=== PATIENT | female | born 1945 | race Caucasian/White ===

== ENCOUNTER 2017-11-03 09:08 | Day surgery (SDC) | payer MEDICARE, BC ==
[2017-10-30 08:46] VITALS: BMI 23.4
[~2017-11-03 09:08] MED LIST: LACTATED RINGERS 1,000 ML IV SCH
[2017-11-03] MEDS ORDERED: LIDOCAINE 1% 20 ML VIAL (10MG/ML) FOR IV START INTRADERMA ONE (09:49)
[2017-11-03] MEDS ORDERED: PROPOFOL 10 MG/ML 20 ML VIAL IV ONE (10:14)
[2017-11-03] MEDS ORDERED: LIDOCAINE 1% INJ 10MG/ML (20 ML MDV) ONE (10:14)
--- NOTE | 2017-11-03 10:55 | P.PCN ---
Date of Procedure: 11/03/17 Procedure(s) Performed: Procedure: Esophagogastroduodenoscopy and biopsy. Preoperative diagnosis: Abdominal pain with reflux and nausea and vomiting. Postoperative diagnosis: 1. Small sliding hiatal hernia with no obvious esophagitis or complicated reflux disease. 2. Mild gastritis and duodenitis with pre-pyloric ulcer not bleeding at the time of the exam or causing gastric outlet obstruction. 3. Multiple biopsies obtained from the duodenum, antrum, antral ulcer and esophagus. Preparation sedation: Was provided by anesthesia. Brief clinical history: The patient is a 72-year-old female who is scheduled for this evaluation because of history of abdominal pain, reflux, weight loss as well as nausea and vomiting. The patient was in the emergency room at [facility] last month for abdominal pain, nausea and vomiting. The patient was on arthritis medications which has been held and is currently receiving Zantac, omeprazole and Carafate. This evaluation is to assess for peptic ulcer disease or other pathology. Procedure: With the patient on her left lateral decubitus position and after informed consent and adequate sedation, I passed the Olympus-GIF 160 video upper endoscope through the cricopharyngeus down the esophagus. GE junction was around 36-37 cm from the incisors and there was a small sliding hiatal hernia. The esophagus did not show any obvious esophagitis or complicated reflux disease. The endoscope was then advanced into the stomach which was insufflated with air and inspected in detail including the retroflex view in the cardia. Finally, the endoscope was passed through the pylorus into the duodenum. Duodenal bulb showed some erythema and minimal friability but no ulcers or erosions. Pyloric channel did not show any ulcers. The antrum showed mottling and erythema and there was an antral ulcer in the prepyloric area measuring around 3 cm in greatest dimension which was covered with white and dark exudate but that did not show any evidence of bleeding or gastric outlet obstruction. I obtained biopsies from mid said in addition to biopsies from the duodenum, antrum and esophagus before the endoscope was withdrawn. The patient tolerated the procedure well. Plan: Will await biopsy results. In the meantime we will continue intensive medical therapy like you are doing. The patient will be seen in follow-up and consideration can be considered for repeat exam to assess for the healing of the ulcer in 8-12 weeks. We will keep you updated on her progress.
[2017-11-04 22:59] VITALS: BP 113/75; PULSE 61; RESP 16; TEMP 97.8
== END 2017-11-03 11:28 | disposition home or self-care (01) ==
LOC: ORWHC2ENDO 09:08
DX: K21.0 Gastro-esophageal reflux disease with esophagitis (principal); K29.00 Acute gastritis without bleeding; K29.50 Unspecified chronic gastritis without bleeding; K29.80 Duodenitis without bleeding; K44.9 Diaphragmatic hernia without obstruction or gangrene; E78.5 Hyperlipidemia, unspecified; E89.0 Postprocedural hypothyroidism; I10 Essential (primary) hypertension; M19.90 Unspecified osteoarthritis, unspecified site; Z79.891 Long term (current) use of opiate analgesic; Z79.899 Other long term (current) drug therapy; Z96.653 Presence of artificial knee joint, bilateral
CPT/HCPCS: 43239; 88305; 88342; J2001; J2704

== ENCOUNTER → 2018-06-21 | Outpatient (CLI) | payer MEDICARE, BC | END | disposition home or self-care (01) | LOC: LABWHC1 10:15 | PROVIDERS: ATTEND Surgery Plastic and Reconstructive Surgery | DX: Z01.818 Encounter for other preprocedural examination (principal) | CPT/HCPCS: 93005 ==

== ENCOUNTER 2018-07-15 06:01 | Day surgery (SDC) | payer MEDICARE, BC ==
[2018-07-12 14:07] VITALS: BMI 23.8
--- NOTE | 2018-07-14 19:06 | P.GSHP ---
History of Present Illness H&P Date: 07/15/18 CHIEF COMPLAINT: Cholecystitis and gastric ulcers HISTORY OF PRESENT ILLNESS: The patient is a 73-year-old female who presents with history of epigastric including right upper quadrant abdominal pain. She underwent diagnostic studies for her gallbladder. Separately her clinical picture was consistent with cholecystitis. Now she presents for surgical intervention. Additionally, she has history of gastric ulcers as well as elevated liver enzymes. PAST MEDICAL HISTORY: Please see list PAST SURGICAL HISTORY: Please see list MEDICATIONS: Please see list ALLERGIES: Denies. SOCIAL HISTORY: No illicit drug use or recent tobacco use FAMILY HISTORY: Pertinent for gallbladder disease REVIEW OF ORGAN SYSTEMS: CONSTITUTIONAL: No reports of fevers or chills. HEENT: Denies any troubles with the vision or hearing. PHYSICAL EXAM: VITAL SIGNS: Afebrile vital signs stable GENERAL: Well-developed pleasant in no acute distress. HEENT: No scleral icterus. Extraocular movements grossly intact. Moist buccal mucosa. NECK: Supple without lymphadenopathy. CHEST: Unlabored respirations. Equal bilateral excursions. CARDIOVASCULAR: Regular rate regular rhythm rhythm. Distal 2+ pulses. ABDOMEN: Soft, nondistended. Tender along the epigastrium and right upper quadrant. MUSCULOSKELETAL: No clubbing, cyanosis, or edema. NEURO: Cranial nerves II to XII within normal limits. No focal or lateralizing signs. PSYCH: Alert and oriented to person, place and time. SKIN: Well-perfused good skin turgor. ASSESSMENT: 1. Epigastric and right upper quadrant abdominal pain 2. Chronic cholecystitis 3. Symptomatic gallstones. 4. Gastric ulcers PLAN: 1. Will need a robotic cholecystectomy possible open. Benefits and risks were described. 2. Heparin for DVT prophylaxis 5000 units. 3. Antibiotic prophylaxis. 4. Recommend intraoperative upper endoscopy for history of gallstones ulcers 5. Will need compress and metabolic panel including CBC with history of elevated liver enzymes and cholecystitis Past Medical History Past Medical History: GERD/Reflux, Hyperlipidemia, Hypertension, Memory Impairment, Osteoarthritis (OA), Thyroid Disorder Additional Past Medical History / Comment(s): STATES RECENTLY HOSPITALIZED AT [facility] FOR PROBLEMS SWALLOWING. History of Any Multi-Drug Resistant Organisms: None Reported Past Surgical History: Back Surgery, Joint Replacement Additional Past Surgical History / Comment(s): DARRIUS. TOTAL KNEE, LOWER BACK SURGERY X2 Past Anesthesia/Blood Transfusion Reactions: No Reported Reaction Smoking Status: Former smoker - Past Family History Mother Family Medical History: No Reported History Medications and Allergies Home Medications Medication Instructions Recorded Confirmed Type Atorvastatin [Lipitor] 40 mg PO DAILY 10/30/17 07/12/18 History Donepezil [Aricept] 10 mg PO HS 10/30/17 07/12/18 History Levothyroxine Sodium [Synthroid] 125 mcg PO DAILY 10/30/17 07/12/18 History Metoprolol Tartrate [Lopressor] 25 mg PO BID 10/30/17 07/12/18 History Multivit with Calcium,Iron,Min 1 each PO DAILY 10/30/17 07/12/18 History [Women's Multivitamin] Allergies Allergy/AdvReac Type Severity Reaction Status Date / Time No Known Allergies Allergy Verified 07/12/18 13:59
[~2018-07-15 06:01] MED LIST changes: +DEXAMETHASONE SOD PHOSPHATE 10 MG/ML 1 ML VIAL IV ONE; +HEPARIN SODIUM,PORCINE 5,000 UNIT/ML 1 ML VIAL SQ ONE; +HEPARIN SODIUM,PORCINE 5,000 UNIT/ML 1 ML VIAL SQ STA; +INDOCYANINE GREEN 25 MG VIAL IV STA; +MIDAZOLAM 2 MG/2 ML VIAL IV PRN; +ONDANSETRON 4 MG/2 ML VIAL IVP ONE; +ceFAZolin IN SWFI 2 GM/20 ML SYRINGE IVP ONE; +fentaNYL (PF) 50 MCG/ML 2 ML AMP IV PRN
[2018-07-15 06:41] VITALS: RESP 16
[2018-07-15 06:58] LABS: Basophils % (A) 1 %; Eosinophils # (A) 0.1 k/uL (0-0.7); Eosinophils % (A) 1 %; HGB 12.7 gm/dL (11.4-16.0); Lymphocytes # (A) 1.2 k/uL (1.0-4.8); Lymphocytes % (A) 21 %; MCH 30.4 pg (25.0-35.0); MCHC 32.6 g/dL (31.0-37.0); MCV 93.4 fL (80.0-100.0); Mean Platelet Volume 7.1; Monocytes # (A) 0.3 k/uL (0-1.0); Monocytes % (A) 6 %; Neutrophils # (A) 3.8 k/uL (1.3-7.7); Neutrophils % (A) 69 %; Platelet Count 239 k/uL (150-450); RBC 4.18 m/uL (3.80-5.40); RDW 13.3 % (11.5-15.5); WBC 5.5 k/uL (3.8-10.6)
[2018-07-15 07:08] LABS: Albumin 3.9 g/dL (3.5-5.0); Calcium 9.1 mg/dL (8.4-10.2); Potassium 4.1 mmol/L (3.5-5.1); Total Bilirubin 2.1 mg/dL (0.2-1.3); Total Protein 6.5 g/dL (6.3-8.2)
[2018-07-15] MEDS ORDERED: ePHEDrine SULFATE/0.9% NACL/PF 50 MG/5 ML SYRINGE IV ONE (07:34)
[2018-07-15] MEDS ORDERED: BUPIVACAIN-EPI 0.25%-1:200,000 30 ML VIAL SQ ONE (07:34)
[2018-07-15] MEDS ORDERED: GLYCOPYRROLATE 0.2 MG/ML 2 ML VIAL ONE (07:34)
[2018-07-15] MEDS ORDERED: MIDAZOLAM 2 MG/2 ML VIAL ONE (07:34)
[2018-07-15] MEDS ORDERED: ROCURONIUM BROMIDE 10 MG/ML 10 ML VIAL IV ONE (07:34)
[2018-07-15] MEDS ORDERED: LIDOCAINE 1% INJ 10MG/ML (20 ML MDV) ONE (07:34)
[2018-07-15] MEDS ORDERED: PROPOFOL 10 MG/ML 20 ML VIAL IV ONE (07:34)
[2018-07-15] MEDS ORDERED: INDOCYANINE GREEN 25 MG VIAL IV ONE (07:34)
[2018-07-15] MEDS ORDERED: fentaNYL (PF) 50 MCG/ML 2 ML AMP ONE (07:34)
[2018-07-15] MEDS ORDERED: NEOSTIGMINE 1 MG/ML 10 ML VIAL ONE (07:34)
[2018-07-15] MEDS ORDERED: SUCCINYLCHOLINE CHLORIDE 100 MG/5 ML SYR IV ONE (07:34)
[2018-07-15] MEDS ORDERED: LACTATED RINGERS 1,000 ML IV ONE (08:42)
--- NOTE | 2018-07-15 08:42 | P.PCN ---
Date of Procedure: 07/15/18 Description of Procedure: PREOPERATIVE DIAGNOSIS: History of gastric ulcers POSTOPERATIVE DIAGNOSIS: History of gastric ulcers Gastritis. Gastroesophageal reflux disease. Diaphragmatic hiatal hernia OPERATION: Esophagogastroduodenoscopy with biopsies along antrum. SURGEON: Fouzia Cadet MD ANESTHESIA: MAC. INDICATIONS: The patient is a 73-year-old female who presents with a history of reflux disease. Benefits and risks of the procedure were described. Informed consent was obtained. DESCRIPTION: The patient was brought into the endoscopy suite and laid in the left lateral decubitus position. An Olympus gastroscope was passed along the posterior oropharynx down to the distal esophagus where the squamocolumnar junction was encountered at 37 cm from the incisors. The stomach was entered and no bile reflux was found. Additional findings are listed below. Biopsies with cold forceps were obtained of the antrum. The first through third portion of the duodenum was examined and unremarkable. Retroflexion of the scope confirmed Hill grade 3 lower esophageal valve. The squamocolumnar junction demonstrated no LA grade A erosive esophagitis. The stomach was desufflated. The patient tolerated the procedure well. FINDINGS: Squamocolumnar junction 37 cm from the incisors. Diaphragmatic hiatus at 40 cm. Hiatal hernia, 3 cm Hill grade 3 lower esophageal valve. No LA grade A erosive esophagitis. No active duodenitis. Chronic gastritis with recent bleed RECOMMENDATIONS: Upper endoscopy as needed.
--- NOTE | 2018-07-15 08:45 | P.OP ---
Date of Procedure: 07/15/18 Description of Procedure: SURGEON: FELICE GRAY MD DIGITAL MARKETING SPECIALIST: PREOPERATIVE DIAGNOSES: 1. Symptomatic gallstones 2. Chronic cholecystitis 3. History of gastric ulcers 4. Hypertensive heart disease 5. Hyperlipidemia 6. Hypothyroidism 7. Dysphagia 8. Dementia POSTOPERATIVE DIAGNOSES: 1. Symptomatic gallstones 2. Chronic cholecystitis 3. History of gastric ulcers 4. Hypertensive heart disease 5. Hyperlipidemia 6. Hypothyroidism 7. Dysphagia 8. Dementia OPERATION: 1. Robotic-assisted da Niraj Xi laparoscopic cholecystectomy, multiport with FIREFLY 2. Intraoperative esophagogastroduodenoscopy (please see separate operative report) ESTIMATED BLOOD LOSS: 5 mL. SPECIMENS REMOVED: Gallbladder. COMPLICATIONS: None. OPERATIVE FINDINGS: 1. Chronic cholecystitis INDICATIONS: The patient is a 73-year-old female who presents with cholelcystitis. Surgical intervention with a laparoscopic cholecystectomy was described at length including injury to the biliary tree, bleeding, infection, need for further surgery. Informed consent was obtained. Robotic assisted laparoscopic approach was described. Benefits and risks of the procedure including but not limited to bleeding, infection, injury to the biliary tree was described. Informed consent was obtained. DESCRIPTION OF PROCEDURE: Patient was brought to the operating room, placed in supine position. After general induction, the abdomen had been prepped and draped in standard sterile fashion. The robotic da Niraj XI system was primed. After a timeout protocol was performed, the patient had been prepped and draped in standard sterile fashion. The patient was injected with indocyanine green. A 5 mm 0 degrees laparoscopic trocar entry was performed along the left upper quadrant. The abdomen insufflated to 15 mmHg pressure which she tolerated well. Diagnostic laparoscopy demonstrated no injury to bowel viscera or mesentery. The liver surface was unremarkable. Next, two 8 mm robotic ports were placed along the right upper abdomen. The camera 8-mm port was maintained along the epigastrium. Another 8 mm port was placed along the left upper abdominal wall after exchanging the 5 mm port. Please note that the ports were placed at least 10 to 15 cm away from the target anatomy of the gallbladder. The robot was docked along the left lateral abdomen. The patient was repositioned in reverse Trendelenburg position. Using a grasper for arm 3, a grasper for arm 4, including hook cautery for arm 1 , the robotic system was docked and primed as described. Instruments were interchanged by the assistant director of nursing including hook cautery, Bovie cautery and clip appliers. I had sat at the console. Adhesions were identified along the infundibulum of the gallbladder and addressed using hook cautery. The gallbladder fundus was retracted over the dome of the liver. Initial attention was brought to the infundibulum which was gently retracted in the inferior lateral approach. Using a grasper, the cystic duct including the cystic artery was carefully skeletonized. FIREFLY was used to identify the cystic artery and cystic structures. Large PLASTIC clips were used throughout the entire case. Using a clip napper runner 2 clips were placed proximally, and 1 clip was placed distally along the cystic duct and then cauterized with the cautery. Again care was taken to avoid any injury to the biliary tree as the common bile duct was clearly visualized during this portion of dissection. Next, the cystic artery was similarly clipped and cauterized. Electro-Bovie cautery was used to remove the gallbladder from the hepatic fossa. Hemostasis was checked and found to be adequate. The robot was undocked. I re-scrubbed into the case. Using a 10 mm Endo Catch bag via the left upper quadrant incision, the specimen was removed from the abdominal cavity. All pneumoperitoneum instruments were evacuated from the abdominal cavity. The incisions were reapproximated using 4-0 Monocryl in an interrupted subcuticular fashion. Fascial defects were less than 8 mm in size. Please note along the trocar sites, local anesthetic was placed as a field block prior to insertion of all instruments. Liquid glue was applied to the skin. At the end of the procedure needle, sponge, and instrument count had been verified correct by the medical coding technician. The patient was transferred to postanesthesia care unit in stable condition. Intraoperative films were shared with the patient's family who were very pleased with the level of care. Console time 16 minutes Plan - Discharge Summary New Discharge Prescriptions: No Action Atorvastatin [Lipitor] 40 mg PO DAILY Metoprolol Tartrate [Lopressor] 25 mg PO BID Levothyroxine Sodium [Synthroid] 125 mcg PO DAILY Donepezil [Aricept] 10 mg PO HS Multivit with Calcium,Iron,Min [Women's Multivitamin] 1 each PO DAILY Discharge Medication List Atorvastatin [Lipitor] 40 mg PO DAILY 10/30/17 [History] Donepezil [Aricept] 10 mg PO HS 10/30/17 [History] Levothyroxine Sodium [Synthroid] 125 mcg PO DAILY 10/30/17 [History] Metoprolol Tartrate [Lopressor] 25 mg PO BID 10/30/17 [History] Multivit with Calcium,Iron,Min [Women's Multivitamin] 1 each PO DAILY 10/30/17 [ History]
[2018-07-15 08:54] VITALS: TEMP 97.7
[2018-07-15] MEDS ORDERED: HYDROmorphone 1 MG/ML 1 ML SYRINGE IVP ONE (09:04)
[2018-07-15 10:01] VITALS: BP 125/78; PULSE 70
== END 2018-07-15 10:45 | disposition home or self-care (01) ==
LOC: OR 06:01
PROVIDERS: ATTEND Surgery Plastic and Reconstructive Surgery
DX: K81.1 Chronic cholecystitis (principal); K29.50 Unspecified chronic gastritis without bleeding; K21.9 Gastro-esophageal reflux disease without esophagitis; R13.10 Dysphagia, unspecified; K44.9 Diaphragmatic hernia without obstruction or gangrene; K22.10 Ulcer of esophagus without bleeding; I11.9 Hypertensive heart disease without heart failure; E78.5 Hyperlipidemia, unspecified; E03.9 Hypothyroidism, unspecified; F03.90 Unspecified dementia, unspecified severity, without behavioral disturbance, psychotic disturbance, mood disturbance, and anxiety; K40.90 Unilateral inguinal hernia, without obstruction or gangrene, not specified as recurrent; Z87.891 Personal history of nicotine dependence; Z79.890 Hormone replacement therapy; Z79.899 Other long term (current) drug therapy
CPT/HCPCS: 88304; 88305; 80053; 85025; 47562; 43239; J2250; J1644; J1100; J2710; J2405; J2001; J3010; J1170; J0330; J2704; J0690

== ENCOUNTER → 2019-05-25 | Outpatient (CLI) | payer MEDICARE, BC ==
--- NOTE | 2019-05-25 13:43 | CT ---
EXAMINATION TYPE: CT lumbar spine wo con DATE OF EXAM: 05/25/2019 COMPARISON: None HISTORY: Intervertebral disc degeneration CT DLP: 375.[address] of the lumbar spine was performed. Bone and soft tissue window settings are submitted as well as coronal and sagittal reconstructions. L1-L2: Normal disc space height. No disc herniation protrusion or central stenosis. No facet joint arthropathy. No evidence for foraminal encroachment. L2-L3: Normal disc space height. No disc herniation protrusion or central stenosis. No facet joint arthropathy. No evidence for foraminal encroachment. L3-L4: Moderate degenerative disc space narrowing. Posterior disc bulge. No herniation or protrusion. No central stenosis or foraminal encroachment. Facet joint arthropathy. L4-L5: Postoperative changes of decompressive laminectomy. Intervertebral body spacers are in place. Alignment is anatomic. No evidence for recurrent or residual disease. L5-S1: Postoperative changes of decompressive laminectomy. Severe degenerative disc space narrowing. No evidence for recurrent or residual disease. No paraspinal masses are identified. Lumbar segments are free if fracture. IMPRESSION: 1. Postoperative changes as noted within normal alignment. No evidence for recurrent or residual dise ase. 2. Degenerative disc disease at L3-4 with disc bulges noted.
== END | disposition home or self-care (01) ==
LOC: RADCTMAIN 12:47
PROVIDERS: ATTEND Nurse Practitioner Adult Health
DX: M51.36 Other intervertebral disc degeneration, lumbar region (principal); M51.26 Other intervertebral disc displacement, lumbar region; Z98.890 Other specified postprocedural states
CPT/HCPCS: 72131

== ENCOUNTER 2023-03-08 16:42 | Inpatient (IN) | payer MEDICARE, BC ==
[2023-03-08 17:09] LABS: Basophils % (A) 0 %; Eosinophils # (A) 0.1 k/uL (0-0.7); Eosinophils % (A) 2 %; Lymphocytes # (A) 1.5 k/uL (1.0-4.8); Lymphocytes % (A) 21 %; MCH 30.6 pg (25.0-35.0); MCHC 33.3 g/dL (31.0-37.0); MCV 91.7 fL (80.0-100.0); Mean Platelet Volume 8.5; Monocytes # (A) 0.6 k/uL (0-1.0); Monocytes % (A) 8 %; Neutrophils # (A) 4.8 k/uL (1.3-7.7); Neutrophils % (A) 67 %; RBC 3.93 m/uL (3.80-5.40); WBC 7.2 k/uL (3.8-10.6)
--- NOTE | 2023-03-08 17:25 | XR ---
EXAMINATION TYPE: XR chest 1V DATE OF EXAM: 03/08/2023 5:19 PM COMPARISON: None TECHNIQUE: XR chest 1V Portable AP radiograph of the chest. CLINICAL INDICATION:Female, 78 years old with history of pain; FINDINGS: Patient is rotated which limits evaluation. Lungs/Pleura: There is no evidence of pleural effusion, focal consolidation, or pneumothorax. Chroni c senescent parenchymal change. Pulmonary vascularity: Unremarkable. Heart/mediastinum: Cardiomediastinal silhouette is prominent in size. Musculoskeletal: No acute osseous pathology. IMPRESSION: No acute cardiopulmonary disease/process.
--- NOTE | 2023-03-08 17:28 | XR ---
EXAMINATION TYPE: XR Hip RT and AP Pelvis DATE OF EXAM: 03/08/2023 5:18 PM INDICATION: Patient age:Female; 78 years old; Reason for study: fall; PHH. COMPARISON: None. TECHNIQUE: The right hip was examined in frontal and crosstable lateral projections and a AP pelvis. FINDINGS: Mildly displaced acute intertrochanteric fracture with extension distally into the proximal diaphysis. A lesser trochanter is displaced approximately 8.5 cm medially. There is associated mild soft tissue edema. No dislocation. Mild osteoarthritic changes of both hips with joint space narrowin g and marginal osteophytosis. Pelvic phleboliths identified. IMPRESSION: Acute mildly displaced right proximal femur intertrochanteric fracture with extension into the proxim al diaphysis.
[2023-03-08 17:33] LABS: ALT 25 U/L (4-34); AST 35 U/L (14-36); African American GFR (CKD) >90 (>60 ml/min/1.73 sqM); Albumin 3.5 g/dL (3.5-5.0); Alkaline Phosphatase 101 U/L (38-126); Anion Gap 7 mmol/L; Blood Urea Nitrogen 27 mg/dL (7-17); Calcium 8.5 mg/dL (8.4-10.2); Carbon Dioxide 27 mmol/L (22-30); Chloride 106 mmol/L (98-107); Glucose 98 mg/dL (74-99); Non-African American GFR(CKD) 87 (>60 ml/min/1.73 sqM); Potassium 4.1 mmol/L (3.5-5.1); Sodium 140 mmol/L (137-145); Total Bilirubin 1.2 mg/dL (0.2-1.3); Total Protein 6.2 g/dL (6.3-8.2)
[2023-03-08 17:35] LABS: INR 1.3 (<1.2); Prothrombin Time 13.6 sec (9.0-12.0)
[2023-03-08 17:46] LABS: Partial Thromboplastin Time 19.3 sec (22.0-30.0)
[2023-03-08 17:47] LABS: Platelet Count 96 k/uL (150-450)
[2023-03-08] MEDS ORDERED: HYDROmorphone 1 MG/ML 1 ML SYRINGE IVP PRN (17:52)
[2023-03-08] MEDS ORDERED: NALOXONE 0.4 MG/ML 1 ML VIAL IV PRN (17:52)
[2023-03-08] MEDS ORDERED: ACETAMINOPHEN TAB 325 MG TAB PO PRN (17:52)
--- NOTE | 2023-03-08 17:56 | ED ---
General Adult HPI - General Chief complaint: Fall Stated complaint: Fall, right hip injury Time Seen by Provider: 03/08/23 16:44 Source: family, EMS, RN notes reviewed, old records reviewed Mode of arrival: EMS Limitations: altered mental status - History of Present Illness Initial comments: 78-year-old female resents status [facility]. Patient was walking in the hallway, fell onto her right side. No head or neck trauma. No loss conscious. No anti-coagulation. She was noted by paramedics to have a shortened and rotated right lower extremity. Patient has advanced dementia and is unable to contribute at all to the history. Patient received 5 mg of morphine by paramedics during transport - Related Data Home Medications Medication Instructions Recorded Confirmed Atorvastatin [Lipitor] 40 mg PO DAILY 10/30/17 07/12/18 Donepezil [Aricept] 10 mg PO HS 10/30/17 07/12/18 Levothyroxine Sodium [Synthroid] 125 mcg PO DAILY 10/30/17 07/12/18 Metoprolol Tartrate [Lopressor] 25 mg PO BID 10/30/17 07/12/18 Multivit with Calcium,Iron,Min 1 each PO DAILY 10/30/17 07/12/18 [Women's Multivitamin] Previous Rx's Medication Instructions Recorded Ibuprofen [Motrin] 600 mg PO Q8HR PRN #30 tab 07/15/18 Omeprazole 40 mg PO DAILY #14 capsule. 07/15/18 Allergies Allergy/AdvReac Type Severity Reaction Status Date / Time No Known Allergies Allergy Verified 03/08/23 16:50 Review of Systems ROS Statement: Those systems with pertinent positive or pertinent negative responses have been documented in the HPI. ROS Other: All systems not noted in ROS Statement are negative. Past Medical History Past Medical History: Dementia, GERD/Reflux, Hyperlipidemia, Hypertension, Memory Impairment, Osteoarthritis (OA), Thyroid Disorder Additional Past Medical History / Comment(s): STATES RECENTLY HOSPITALIZED AT [facility] FOR PROBLEMS SWALLOWING. alzheimers History of Any Multi-Drug Resistant Organisms: None Reported Past Surgical History: Back Surgery, Joint Replacement Additional Past Surgical History / Comment(s): DARRIUS. TOTAL KNEE, LOWER BACK SURGERY X2 Past Anesthesia/Blood Transfusion Reactions: No Reported Reaction Past Psychological History: Anxiety Smoking Status: Unknown if ever smoked Past Alcohol Use History: None Reported Past Drug Use History: None Reported - Past Family History Mother Family Medical History: No Reported History General Exam Limitations: altered mental status General appearance: alert, in no apparent distress Head exam: Present: atraumatic, normocephalic Eye exam: Present: normal appearance, PERRL Neck exam: Present: normal inspection. Absent: tenderness, meningismus Respiratory exam: Present: normal lung sounds bilaterally. Absent: respiratory distress, wheezes Cardiovascular Exam: Present: regular rate, normal rhythm GI/Abdominal exam: Present: soft. Absent: distended, tenderness, guarding Extremities exam: Present: tenderness (Tenderness with any movement of the right hip. The right leg is shortened and rotated. Distal pulses intact.). Absent: full ROM Neurological exam: Present: alert. Absent: oriented X3 Psychiatric exam: Present: normal affect, normal mood Course Vital Signs 03/08/23 16:43 Temperature 98.3 F Pulse Rate 74 Respiratory 18 Rate Blood Pressure 115/76 O2 Sat by Pulse 96 Oximetry Medical Decision Making - Medical Decision Making Was pt. sent in by a medical professional or institution (, PA, HEALTH AND SAFETY DIRECTOR, urgent care, hospital, or penitentiary...) When possible be specific @ -No Did you speak to anyone other than the patient for history (EMS, parent, family, police, friend...)? What history was obtained from this source @ Paramedics and family Did you review nursing and triage notes (agree or disagree)? Why? @ -I reviewed and agree with nursing and triage notes Were old charts reviewed (outside hosp., previous admission, EMS record, old EKG, old radiological studies, urgent care reports/EKG's, penitentiary records)? Report findings @ -No old charts were reviewed Differential Diagnosis (chest pain, altered mental status, abdominal pain women, abdominal pain men, vaginal bleeding, weakness, fever, dyspnea, syncope, headache, dizziness, GI bleed, back pain, seizure, CVA, palpatations, mental health, musculoskeletal)? @ -not applicable EKG interpreted by me (3pts min.). @ -As above X-rays interpreted by me (1pt min.). @ Right intertrochanteric fracture CT interpreted by me (1pt min.). @ -None done U/S interpreted by me (1pt. min.). @ -None done What testing was considered but not performed or refused? (CT, X-rays, U/S, labs)? Why? @ -None What meds were considered but not given or refused? Why? @ -None Did you discuss the management of the patient with other professionals (pr ofessionals i.e. , PA, HEALTH AND SAFETY DIRECTOR, lab, RT, psych nurse, dialysis social worker, lithographic stripper, teacher, earth science technical officer, shelter case manager)? Give summary @ Dr. Horvath Was smoking cessation discussed for >3mins.? @ -No Was critical care preformed (if so, how long)? @ -No Were there social determinants of health that impacted care today? How? (Homelessness, low income, unemployed, alcoholism, drug addiction, tra nsportation, low edu. Level, literacy, decrease access to med. care, penitentiary, rehab)? @ -No Was there de-escalation of care discussed even if they declined (Discuss DNR or withdrawal of care, Hospice)? DNR status @ -No What co-morbidities impacted this encounter? (DM, HTN, Smoking, COPD, CAD, Cancer, CVA, ARF, Chemo, Hep., AIDS, mental health diagnosis, sleep apnea, morbid obesity)? @ Advanced dementia Was patient admitted / discharged? Hospital course, mention meds given and route, prescriptions, significant lab abnormalities, going to OR and other pertinent info. @ 78-year-old female with ground level fall, right hip fracture. Patient will be admitted to orthopedics with medicine on consult. Undiagnosed new problem with uncertain prognosis? @ -No Drug Therapy requiring intensive monitoring for toxicity (Heparin, Nitro, Insulin, Cardizem)? @ -No Were any procedures done? @ -No Diagnosis/symptom? @ Right IT fracture Acute, or Chronic, or Acute on Chronic? @ Acute Uncomplicated (without systemic symptoms) or Complicated (systemic symptoms)? @ -Complicated Side effects of treatment? @ -No Exacerbation, Progression, or Severe Exacerbation? @ -No Poses a threat to life or bodily function? How? (Chest pain, USA, AL, pneumonia, PE, COPD, DKA, ARF, appy, cholecystitis, CVA, Diverticulitis, Homicidal, Suicidal, threat to staff... and all critical care pts) @ -Yes, immobility, pneumonia - Lab Data Result diagrams: 03/08/23 16:57 03/08/23 16:57 Lab Results 05/05/2403/08/23 03/08/23 Range/Units 16:57 16:57 16:57 WBC 7.2 (3.8-10.6) k/uL RBC 3.93 (3.80-5.40) m/uL Hgb 12.0 (11.4-16.0) gm/dL Hct 36.0 (34.0-46.0) % MCV 91.7 (80.0-100.0) fL MCH 30.6 (25.0-35.0) pg MCHC 33.3 (31.0-37.0) g/dL RDW 14.0 (11.5-15.5) % Plt Count 96 L (150-450) k/uL MPV 8.5 Neutrophils % 67 % Lymphocytes % 21 % Monocytes % 8 % Eosinophils % 2 % Basophils % 0 % Neutrophils # 4.8 (1.3-7.7) k/uL Lymphocytes # 1.5 (1.0-4.8) k/uL Monocytes # 0.6 (0-1.0) k/uL Eosinophils # 0.1 (0-0.7) k/uL Basophils # 0.0 (0-0.2) k/uL PT 13.6 H (9.0-12.0) sec INR 1.3 H (<1.2) APTT 19.3 L (22.0-30.0) sec Sodium 140 (137-145) mmol/L Potassium 4.1 (3.5-5.1) mmol/L Chloride 106 (98-107) mmol/L Carbon Dioxide 27 (22-30) mmol/L Anion Gap 7 mmol/L BUN 27 H (7-17) mg/dL Creatinine 0.64 (0.52-1.04) mg/dL Est GFR (CKD-EPI)AfAm >90 (>60 ml/min/1.73 sqM) Est GFR (CKD-EPI)NonAf 87 (>60 ml/min/1.73 sqM) Glucose 98 (74-99) mg/dL Calcium 8.5 (8.4-10.2) mg/dL Total Bilirubin 1.2 (0.2-1.3) mg/dL AST 35 (14-36) U/L ALT 25 (4-34) U/L Alkaline Phosphatase 101 (38-126) U/L Total Protein 6.2 L (6.3-8.2) g/dL Albumin 3.5 (3.5-5.0) g/dL Disposition Clinical Impression: Intertrochanteric fracture of right hip Disposition: ADMITTED IP TO THIS HOSP Condition: Stable Is patient prescribed a controlled substance at d/c from ED?: No Referrals: Latoya Mead DO [Primary Care Provider] - 1-2 days Time of Disposition: 17:56
[2023-03-08] MEDS: HYDROmorphone 0.5 MG/0.5 ML SYRINGE IVP PRN ×2 (18:22→22:54)
[2023-03-08] MEDS: SODIUM CHLORIDE 0.9% 1,000 ML IV SCH (18:24)
[2023-03-08] MEDS: ONDANSETRON 4 MG/2 ML VIAL IVP PRN (22:55)
[2023-03-09] MEDS: ONDANSETRON 4 MG/2 ML VIAL IVP PRN ×2 (04:47→15:42)
[2023-03-09] MEDS: HYDROmorphone 0.5 MG/0.5 ML SYRINGE IVP PRN ×3 (04:48→19:12)
[2023-03-09] MEDS: SODIUM CHLORIDE 0.9% 1,000 ML IV SCH ×2 (05:52→22:10)
--- NOTE | 2023-03-09 08:29 | P.HPOR ---
History of Present Illness H&P Date: 03/09/23 Chief Complaint: Right hip pain. This is a 78-year-old female who resides at [facility] and has history of dementia. She apparently was up walking with staff and fell yesterday. On exam and x-ray in the emergency department she is found to have a an intertrochanteric fracture with extension into the subtrochanteric region. She is admitted to our service for surgical intervention and care. Family is present at bedside. The patient is unable to provide history. Past Medical History Past Medical History: Dementia, GERD/Reflux, Hyperlipidemia, Hypertension, Memory Impairment, Osteoarthritis (OA), Thyroid Disorder Additional Past Medical History / Comment(s): STATES RECENTLY HOSPITALIZED AT [facility] FOR PROBLEMS SWALLOWING. alzheimers History of Any Multi-Drug Resistant Organisms: None Reported Past Surgical History: Back Surgery, Joint Replacement Additional Past Surgical History / Comment(s): DARRIUS. TOTAL KNEE, LOWER BACK SURGE RY X2 Past Anesthesia/Blood Transfusion Reactions: No Reported Reaction Past Psychological History: Anxiety Smoking Status: Unknown if ever smoked Past Alcohol Use History: None Reported Additional Past Alcohol Use History / Comment(s): SMOKED A FEW YEARS A TEENAGER Past Drug Use History: None Reported - Past Family History Mother Family Medical History: No Reported History Medications and Allergies Home Medications Medication Instructions Recorded Confirmed Type Atorvastatin [Lipitor] 40 mg PO HS 10/30/17 03/08/23 History Donepezil [Aricept] 10 mg PO HS 10/30/17 03/08/23 History Metoprolol Tartrate [Lopressor] 12.5 mg PO HS 10/30/17 03/08/23 History Acetaminophen [Tylenol 8 Hour] 650 mg PO Q6H PRN 03/08/23 03/08/23 History Citalopram Hydrobromide [CeleXA] 20 mg PO DAILY 03/08/23 03/08/23 History Divalproex Sprinkle [Depakote 125 mg PO BID 03/08/23 03/08/23 History Sprinkle] Furosemide [Lasix] 20 mg PO BID@0700,1600 03/08/23 03/08/23 History LORazepam [Ativan] 0.5 mg PO TID@0700,1300,1900 03/08/23 03/08/23 History Levothyroxine Sodium [Synthroid] 100 mcg PO DAILY@0500 03/08/23 03/08/23 History Potassium Chloride ER [K-Dur 10] 10 meq PO DAILY@0703/08/23 03/08/23 History QUEtiapine [SEROquel] 50 mg PO HS@199903/08/23 03/08/23 History Allergies Allergy/AdvReac Type Severity Reaction Status Date / Time No Known Allergies Allergy Verified 03/08/23 16:50 Physical Examination This is a 78-year-old female in no acute distress. She is unable to provide history or answer questions. Family is providing her history. Exam of the head neck reveal no deformities. There is no apparent pain with palpation of cervical spine or paraspinal musculature. Exam of the upper extremities is unremarkable. No areas of swelling or deformity noted. Exam of the lower extremities reveals shortening and external rotation to the right leg. Pedal pulse is +2/4. Neurovascular status to the lower extremity is intact. Results Pelvis and hip x-rays reveal intertrochanteric fracture of the right hip with extension of the fracture down past the subtrochanteric region. - Labs Labs: Abnormal Lab Results - Last 24 Hours (Table) 03/08/23 03/08/23 03/08/23 Range/Units 16:57 16:57 16:57 Plt Count 96 L (150-450) k/uL PT 13.6 H (9.0-12.0) sec INR 1.3 H (<1.2) APTT 19.3 L (22.0-30.0) sec BUN 27 H (7-17) mg/dL Total Protein 6.2 L (6.3-8.2) g/dL H & H 03/08/23 Range/Units 16:57 Hgb 12.0 (11.4-16.0) gm/dL Hct 36.0 (34.0-46.0) % Coagulation 03/08/23 Range/Units 16:57 INR 1.3 H (<1.2) Result Diagrams: 03/08/23 16:57 03/08/23 16:57 Assessment and Plan (1) Closed fracture of proximal end of right femur Current Visit: Yes Status: Acute Code(s): S72.001A - FRACTURE OF UNSP PART OF NECK OF RIGHT FEMUR, INIT SNOMED Code(s): 664850119 (2) Intertrochanteric fracture of right hip Current Visit: Yes Status: Acute Code(s): S72.141A - DISPLACED INTERTROCHANTERIC FRACTURE OF RIGHT FEMUR, INIT SNOMED Code(s): 572213905 Plan: The clinical and x-ray findings are discussed with the patient and her family. It is recommended she undergo closed reduction with insertion of long intertrochanteric nail right hip. The procedures been discussed in detail including the possible risks and outcomes of surgery. After discussion and consideration the family elects to proceed. We're planning surgery today if cleared medically.
--- NOTE | 2023-03-09 13:15 | P.CONS ---
History of Present Illness - Reason for Consult Consult date: 03/09/23 Medical management - History of Present Illness History of present illness; patient is a 78-year-old lady with past medical history significant for dementia who is a resident of [facility] presented to the ER after having a fall. Patient was walking with staff when she fell on her right side hitting her hip. Patient was brought to the ER of [facility]. Initial blood work in the ER showed white count of 7.2, hemoglobin 12, platelet count 96, sodium 140, potassium 4.1, chloride 106, BUN 27, creatinine 0.64 Pelvis and hip x-rays reveal intertrochanteric fracture of the right hip with extension of the fracture down past the subtrochanteric region Patient was admitted to orthopedic service, internal medicine was consulted for medical management REVIEW OF SYSTEMS: Patient has baseline dementia, review of systems cannot be obtained because of patient's current mental status PHYSICAL EXAMINATION: GENERAL: The patient is alert to self, not in any acute distress. Well developed, well nourished. HEENT: Pupils are round and equally reacting to light. EOMI. No scleral icterus. No conjunctival pallor. Normocephalic, atraumatic. No pharyngeal erythema. No thyromegaly. CARDIOVASCULAR: S1 and S2 present. No murmurs, rubs, or gallops. PULMONARY: Chest is clear to auscultation, no wheezing or crackles. ABDOMEN: Soft, nontender, nondistended, normoactive bowel sounds. No palpable o rganomegaly. MUSCULOSKELETAL: Right lower extremity externally rotated EXTREMITIES: No cyanosis, clubbing, or pedal edema. NEUROLOGICAL: Gross neurological examination did not reveal any focal deficits. SKIN: No rashes. Assessment and plan Right hip fracture Dementia Thrombocytopenia Plan; Monitor vital signs Monitor CBC Delirium precautions Continue pain management Continue DVT prophylaxis per orthopedic Patient is medically cleared for orthopedic procedure, patient had moderate risk for postoperative complications Past Medical History Past Medical History: Dementia, GERD/Reflux, Hyperlipidemia, Hypertension, Memory Impairment, Osteoarthritis (OA), Thyroid Disorder Additional Past Medical History / Comment(s): STATES RECENTLY HOSPITALIZED AT [facility] FOR PROBLEMS SWALLOWING. alzheimers History of Any Multi-Drug Resistant Organisms: None Reported Past Surgical History: Back Surgery, Joint Replacement Additional Past Surgical History / Comment(s): DARRIUS. TOTAL KNEE, LOWER BACK SURGERY X2 Past Anesthesia/Blood Transfusion Reactions: No Reported Reaction Past Psychological History: Anxiety Smoking Status: Unknown if ever smoked Past Alcohol Use History: None Reported Additional Past Alcohol Use History / Comment(s): SMOKED A FEW YEARS A TEENAGER Past Drug Use History: None Reported - Past Family History Mother Family Medical History: No Reported History Medications and Allergies Home Medications Medication Instructions Recorded Confirmed Type Atorvastatin [Lipitor] 40 mg PO HS 10/30/17 03/08/23 History Donepezil [Aricept] 10 mg PO HS 10/30/17 03/08/23 History Metoprolol Tartrate [Lopressor] 12.5 mg PO HS 10/30/17 03/08/23 History Acetaminophen [Tylenol 8 Hour] 650 mg PO Q6H PRN 03/08/23 03/08/23 History Citalopram Hydrobromide [CeleXA] 20 mg PO DAILY 03/08/23 03/08/23 History Divalproex Sprinkle [Depakote 125 mg PO BID 03/08/23 03/08/23 History Sprinkle] Furosemide [Lasix] 20 mg PO BID@0700,1600 03/08/23 03/08/23 History LORazepam [Ativan] 0.5 mg PO TID@0700,1300,1900 03/08/23 03/08/23 History Levothyroxine Sodium [Synthroid] 100 mcg PO DAILY@0500 03/08/23 03/08/23 History Potassium Chloride ER [K-Dur 10] 10 meq PO DAILY@0700 03/08/23 03/08/23 History QUEtiapine [SEROquel] 50 mg PO HS@199903/08/23 03/08/23 History Allergies Allergy/AdvReac Type Severity Reaction Status Date / Time No Known Allergies Allergy Verified 03/08/23 16:50 Physical Exam Vitals: Vital Signs Temp Pulse Pulse Resp BP BP Pulse Ox 03/09/23 09:36 18 03/09/23 08:44 98.0 F 62 18 127/74 92 L 03/09/23 01:24 97.8 F 85 20 121/78 93 L 03/08/23 20:41 98.9 F 90 18 124/83 90 L 03/08/23 18:19 83 20 126/81 95 03/08/23 16:43 98.3 F 74 18 115/76 96 Intake and Output 03/08/23 03/09/23 03/09/23 22:59 06:59 14:59 Intake Total 0 Output Total 800 Balance -800 Intake: Oral 0 Output: Urine 800 Uretheral (Duran) 400 Other: Voiding Method Indwelling Catheter Indwelling Catheter # Voids 1 Weight 63.503 kg Results CBC & Chem 7: 03/08/23 16:57 03/08/23 16:57 Labs: Abnormal Lab Results - Last 24 Hours (Table) 03/08/23 03/08/23 03/08/23 Range/Units 16:57 16:57 16:57 Plt Count 96 L (150-450) k/uL PT 13.6 H (9.0-12.0) sec INR 1.3 H (<1.2) APTT 19.3 L (22.0-30.0) sec BUN 27 H (7-17) mg/dL Total Protein 6.2 L (6.3-8.2) g/dL
[2023-03-09] MEDS: LORazepam 0.5 MG TAB PO SCH (17:30)
[2023-03-09] MEDS ORDERED: LACTATED RINGERS 1,000 ML IV ONE (20:38)
[2023-03-09] MEDS ORDERED: SODIUM CHLORIDE 0.9% 50 ML with ceFAZolin 2,000 MG IV ONE ×2 (20:42)
[2023-03-09] MEDS ORDERED: fentaNYL (PF) 50 MCG/ML 2 ML AMP ONE (20:42)
[2023-03-09] MEDS ORDERED: PROPOFOL 10 MG/ML 20 ML VIAL IV ONE (20:42)
[2023-03-09] MEDS ORDERED: GLYCOPYRROLATE 0.2 MG/ML 2 ML VIAL ONE (20:42)
[2023-03-09] MEDS ORDERED: LIDOCAINE 2% INJ 20 MG/ML (2 ML VIAL) ONE (20:42)
[2023-03-09] MEDS ORDERED: TRANEXAMIC ACID IN NACL,ISO-OS 1,000 MG/100 ML BAG ONE (20:42)
[2023-03-09] MEDS ORDERED: ceFAZolin 1,000 MG in SODIUM CHLORIDE 0.9% 1,000 ML IRRIGATION ONE (20:45)
[2023-03-09] MEDS ORDERED: TRANEXAMIC ACID 1,000 MG in SODIUM CHLORIDE 0.9% 100 ML IVPB ONE (20:58)
[2023-03-09] MEDS ORDERED: ATORVASTATIN 40 MG TAB PO SCH (21:00)
--- NOTE | 2023-03-09 21:49 | P.OP ---
Date of Procedure: 03/09/23 Procedure(s) Performed: PREOPERATIVE DIAGNOSIS: Right hip intertrochanteric fracture. POSTOPERATIVE DIAGNOSIS: Right hip intertrochanteric fracture. OPERATION: Right hip intertrochanteric fracture closed reduction and intramedullary nailing using Synthes IT nail. TARGET MAN: Lupe Redd PA-C (Assistance with: Patient positioning, retraction, exposure, hemostasis, fixation, irrigation, closure, dressing) ANESTHESIA: Gen ESTIMATED BLOOD LOSS: 100 mL. COMPLICATIONS: None OPERATIVE FINDINGS: See dictation INDICATIONS: Mrs. Berger is a 78 year old lady with a history of right intertrochanteric fracture. She has severe dementia but is evidently fairly active. The patient presents to the operating room today for closed reduction and intramedullary nailing. I discussed the risks of surgery in detail as being inclusive of but not limited to: Bleeding, infection, scarring, discomfort, bl ood vessel and/or nerve damage, need for further surgery, malunion, nonunion, gait disturbance including persistent or permanent limp, limb length inequality, arthritis, hardware failure, blood clot, pulmonary embolism, , and other risks. The consent form has been signed. PROCEDURE: After appropriate consent was obtained, the patient was taken to the operating room and placed in supine position. General anesthetic was administered and after confirmation of adequate anesthesia, the patient was carefully placed in the supine position on the operating room table in the fracture table. The patient was placed up against a well-padded peroneal post. Care was taken to make sure about that all pressure points were adequately padded. The affected leg was placed in boot traction and the unaffected leg was placed in a well leg alicea. Using gentle longitudinal distraction as well as adduction and internal rotation, the fracture was reduced as assessed by AP and lateral C-arm imaging. The fracture that extended from the lesser trochanter inferiorly was carefully monitored to make sure that it remained nondisplaced. Once a satisfactory reduction had been obtained, the thigh was prepped and draped in the usual aseptic fashion using ChloraPrep. Ioban drape was used for the case and the patient received intravenous antibiotics prior to incision. Timeout was called, confirming patient identity, side, procedure, and administration of antibiotics. The incision was then created with a #10 blade just proximal to the greater trochanter laterally. It was carried down through skin into the subcutaneous tissues and through fascia. Hemostasis was obtained using electrocautery. The tip of the greater trochanter was palpated and a guide pin was placed at the tip and directed into the femoral shaft as assessed with C-arm imaging. Once optimal pin position had been obtained, a 17 mm reamer was used over the guide pin to create a path for the IT nail. Patient had very good quality cortical bone thickness and therefore a short nail was chosen rather than a long nail. This decision was also based on the interlock of the 170 mm short nail being adequately distal to the furthest extent of the nondisplaced fracture within the proximal shaft. IT nail selected was assembled to the insertion jig on the back table and bushings were checked for accuracy. The nail was then inserted using gentle mallet taps until it was fully deployed. The amount of rotation of the implant was assessed based on the amount of anteversion of the femoral neck. This was rotated to match the patient's femoral neck anteversion and the helical blade guide was placed through the insertion jig and through an incision on the lateral side of the thigh more distal than the first. Once this guide was placed against the lateral cortex of the femur, a guide pin was drilled into the central lower region of the femoral head and neck as based on AP and lateral C- arm imaging. Once optimal pin position had been obtained, the guidewire was measured and appropriately sized helical blade was selected. The path for the helical blade was prepared using a tapered reamer. The helical blade was then inserted using gentle mallet taps along the guidewire until it was fully deployed. There was no displacement of the fracture during this step. The anti- rotation screw was locked down and the insertion apparatus for the helical blade was removed. The guide pin was then removed. Traction was then removed from the leg and the distal interlock was placed through the jig using standard technique. Finally, the insertion jig for the nail was removed and final C-arm images were taken and saved in both AP and lateral planes. The final x-rays showed satisfactory positioning of the implant and good reduction of the fracture. The top of the nail was plugged with a small quantity of bone wax and the incisions were then thoroughly irrigated with normal saline. Final hemostasis was obtained using electrocautery and closure of the fascia was performed using 0-Vicryl suture. 2-0 Vicryl suture was used in the subcutaneous tissues and standard skin closure was performed. Sterile dressing was then applied and the patient was carefully removed from the fracture table frame and placed onto the stretcher. The patient tolerated the procedure well. There were no complications and above noted blood loss. The patient was then subsequently transferred to recovery room in stable condition. Sponge and needle counts were correct.
[2023-03-09] MEDS: QUEtiapine 50 MG TAB PO SCH (22:10)
[2023-03-09] MEDS: DIVALPROEX SPRINKLE 125 MG CAP.SPRINK PO SCH (22:10)
[2023-03-09] MEDS: DONEPEZIL 10 MG TAB PO SCH (22:10)
[2023-03-09] MEDS ORDERED: NALOXONE 0.4 MG/ML 1 ML VIAL IV PRN (22:12)
[2023-03-09] MEDS ORDERED: HYDROcodone/APAP 5-325MG 1 EACH TAB PO PRN (22:14)
[2023-03-09] MEDS ORDERED: HYDROmorphone 0.5 MG/0.5 ML SYRINGE IVP PRN ×3 (22:14)
[2023-03-09] MEDS ORDERED: MAGNESIUM HYDROXIDE 2,400 MG/10 ML CUP PO PRN (22:14)
--- NOTE | 2023-03-09 22:19 | XR ---
EXAMINATION TYPE: XR Hip Complete RT, FL guidance operating room DATE OF EXAM: 03/09/2023 Comparison: None Clinical History: 78-year-old female rt hip nail, fx Findings: Intraoperative fluoroscopy during placement of antegrade intramedullary nail and screw fixation acros s the patient's proximal right femoral intertrochanteric fracture. FLUOROSCOPY Fluoroscopy time of 90 seconds was used during right proximal femur fracture fixation.. 3 image/s do cument/s the procedure. DOSE AREA PRODUCT (DAP) UGY*M,MGY*CM: 4.9027 Impression: Intraoperative fluoroscopy as above.
[2023-03-09] MEDS: METOPROLOL TARTRATE 12.5 MG TAB PO SCH (23:50)
[2023-03-09] MEDS: LACTATED RINGERS 1,000 ML IV SCH (23:50)
[2023-03-10] MEDS: LEVOTHYROXINE 100 MCG TAB PO SCH (05:47)
[2023-03-10] MEDS: LORazepam 0.5 MG TAB PO SCH ×4 (05:47→21:12)
--- NOTE | 2023-03-10 09:01 | P.PN ---
Subjective Progress Note Date: 03/10/23 This is a 78-year-old female who is status post closed reduction and intramedullary nailing of the right hip. This is postoperative day #1 and patient is seen and evaluated at bedside today. Patient has a history of dementia and family is present at bedside today. Family states that the patient has been comfortable and mostly resting so far. Objective - Vital Signs Vital signs: Vital Signs Temp 98.6 F 03/10/23 06:48 Pulse 73 03/10/23 06:48 Resp 16 03/10/23 06:48 BP 104/68 03/10/23 06:48 Pulse Ox 95 03/10/23 06:48 FiO2 Intake & Output 03/09/23 03/10/23 03/10/23 18:59 06:59 18:59 Intake Total 0 601 Output Total 300 575 Balance -300 26 Intake: IV 601 Oral 0 Output: Urine 300 475 Estimated Blood Loss 100 Other: Voiding Method Indwelling Catheter Indwelling Catheter # Voids 0 - Exam Vital signs are stable. Patient is in no acute distress. Patient is pleasantly confused. Calf is soft and nontender to palpation. Dressings are clean, dry, and intact. Patient has full foot and ankle motion without pain or difficulty. Sensation intact. Neurovascular status and circulatory status are intact. - Labs CBC & Chem 7: 03/08/23 16:57 03/08/23 16:57 Assessment and Plan Assessment: Status post closed reduction and intramedullary nailing of the right hip. (1) Intertrochanteric fracture of right hip Current Visit: Yes Status: Acute Code(s): S72.141A - DISPLACED INTERTRO CHANTERIC FRACTURE OF RIGHT FEMUR, INIT SNOMED Code(s): 665247275 Plan: Continue routine postop care and pain control. Patient is to remain nonweightbearing to the right lower extremity. Continue anticoagulation with aspirin. Dressings to stay intact for one week. Appreciate input from medicine. Patient plans to discharge back to [facility].
[2023-03-10] MEDS: LACTATED RINGERS 1,000 ML IV SCH ×2 (09:37→18:06)
[2023-03-10 10:55] LABS: Basophils # (A) 0.03 X 10*3/uL (0.00-0.10); Basophils % (A) 0.3 %; Eosinophils # (A) 0.01 X 10*3/uL (0.04-0.35); Eosinophils % (A) 0.1 %; HCT 29.5 % (37.2-46.3); HGB 9.3 g/dL (12.0-15.0); Immature Grans, Automated 0.3 %; Lymphocytes # (A) 0.59 X 10*3/uL (0.90-5.00); Lymphocytes % (A) 6.3 %; MCHC 31.5 g/dL (32.0-37.0); MCV 95.2 fL (80.0-97.0); Mean Platelet Volume 11.9 fL (9.5-12.2); Monocytes # (A) 0.71 X 10*3/uL (0.20-1.00); Monocytes % (A) 7.6 %; NRBC Per 100 WBC 0 /100 WBCS (0.0-0.0); Neutrophils # (A) 7.95 X 10*3/uL (1.80-7.70); Neutrophils % (A) 85.4 %; Platelet Count 172 X 10*3/uL (140-440); RDW 14.8 % (11.5-14.5); WBC 9.32 X 10*3/uL (4.50-10.00)
[2023-03-10] MEDS: ASPIRIN 81 MG PO SCH ×2 (11:03→21:23)
[2023-03-10] MEDS: CITALOPRAM HYDROBROMIDE 20 MG TAB PO SCH (11:03)
[2023-03-10] MEDS: DIVALPROEX SPRINKLE 125 MG CAP.SPRINK PO SCH ×2 (11:10→21:24)
[2023-03-10 11:14] LABS: ALT 161 U/L (4-34); AST 115 U/L (14-36); African American GFR (CKD) >90 (>60 ml/min/1.73 sqM); Albumin 2.8 g/dL (3.5-5.0); Albumin/Globulin Ratio 1.2; Alkaline Phosphatase 145 U/L (38-126); Anion Gap 7 mmol/L; Blood Urea Nitrogen 19 mg/dL (7-17); Calcium 7.7 mg/dL (8.4-10.2); Carbon Dioxide 26 mmol/L (22-30); Chloride 106 mmol/L (98-107); Globulin 2.4 g/dL; Glucose 106 mg/dL (74-99); Non-African American GFR(CKD) >90 (>60 ml/min/1.73 sqM); Potassium 3.8 mmol/L (3.5-5.1); Sodium 139 mmol/L (137-145); Total Bilirubin 1.5 mg/dL (0.2-1.3); Total Protein 5.2 g/dL (6.3-8.2)
--- NOTE | 2023-03-10 12:49 | P.PN ---
Subjective Progress Note Date: 03/10/23 patient is a 78-year-old lady with past medical history significant for dementia who is a resident of [facility] presented to the ER after having a fall. Patient was walking with staff when she fell on her right side hitting her hip. Patient was brought to the ER of [facility]. Initial blood work in the ER showed white count of 7.2, hemoglobin 12, platelet count 96, sodium 140, potassium 4.1, chloride 106, BUN 27, creatinine 0.64 Pelvis and hip x-rays reveal intertrochanteric fracture of the right hip with extension of the fracture down past the subtrochanteric region Patient was admitted to orthopedic service, internal medicine was consulted for medical management 03/10. Patient seen and examined. Not in acute distress. Vital signs stable. patient's daughter at the bedside. White count is 9.32, hemoglobin is 9.3. Platelet count 172. patient LFTs were elevated this morning, AST 115, ALT 161, alkaline phosphatase 145, REVIEW OF SYSTEMS: has baseline dementia, cannot obtain a detailed review of systems PHYSICAL EXAMINATION: GENERAL: The patient is alert and oriented x3, not in any acute distress. Well developed, well nourished. HEENT: Pupils are round and equally reacting to light. EOMI. No scleral icterus. No conjunctival pallor. Normocephalic, atraumatic. No pharyngeal erythema. No thyromegaly. CARDIOVASCULAR: S1 and S2 present. No murmurs, rubs, or gallops. PULMONARY: Chest is clear to auscultation, no wheezing or crackles. ABDOMEN: Soft, nontender, nondistended, normoactive bowel sounds. No palpable organomegaly. MUSCULOSKELETAL: right hip surgical incision seen EXTREMITIES: No cyanosis, clubbing, or pedal edema. NEUROLOGICAL: Gross neurological examination did not reveal any focal deficits. SKIN: No rashes. Assessment and plan Right hip fracture Dementia Thrombocytopenia acute blood loss anemia elevated LFTs plan Monitor vital signs Monitor CBC Monitor CMP status post closed reduction and intramedullary nailing of the right hip Continue pain management per orthopedics Continue DVT prophylaxis per orthopedicsin the form of aspirin 81 mg twice a day DC Lipitor because of elevated LFTs PT and OT evaluation continue home meds DVT prophylaxis: Objective - Vital Signs Vital signs: Vital Signs Temp 98.6 F 03/10/23 06:48 Pulse 73 03/10/23 06:48 Resp 16 03/10/23 06:48 BP 104/68 03/10/23 06:48 Pulse Ox 95 03/10/23 06:48 FiO2 Intake & Output 03/09/23 03/10/23 03/10/23 18:59 06:59 18:59 Intake Total 0 601 Output Total 300 575 Balance -300 26 Intake: IV 601 Oral 0 Output: Urine 300 475 Estimated Blood Loss 100 Other: Voiding Method Indwelling Catheter Indwelling Catheter # Voids 0 - Labs CBC & Chem 7: 03/10/23 06:27 03/10/23 06:27
[2023-03-10] MEDS ORDERED: SENNOSIDES-DOCUSATE SODIUM 1 EACH TAB PO SCH (21:00)
[2023-03-10] MEDS: QUEtiapine 50 MG TAB PO SCH (21:23)
[2023-03-10] MEDS: METOPROLOL TARTRATE 12.5 MG TAB PO SCH (21:24)
[2023-03-10] MEDS: DONEPEZIL 10 MG TAB PO SCH (21:24)
[2023-03-11] MEDS: LEVOTHYROXINE 100 MCG TAB PO SCH (06:22)
--- NOTE | 2023-03-11 07:16 | P.PN ---
Subjective Progress Note Date: 03/11/23 Principal diagnosis: Right intertrochanteric hip fracture. Status post closed reduction with insertion of intertrochanteric nail right hip. This is a 78-year-old female who is postop day #2 status post closed reduction with insertion of intertrochanteric nail right hip. She is stable from an orthopedic standpoint. There are no new complaints or concerns today. Vital signs are stable. Objective - Vital Signs Vital signs: Vital Signs Temp 96.8 F L 03/11/23 00:40 Pulse 64 03/11/23 00:40 Resp 16 03/11/23 00:40 BP 155/77 03/11/23 00:40 Pulse Ox 94 L 03/11/23 00:40 FiO2 Intake & Output 03/10/23 03/11/23 03/11/23 18:59 06:59 18:59 Intake Total 850 Output Total 300 250 Balance 550 -250 Intake: Intake, IV Titration 850 Amount Lactated Ringers 1,000 ml 800 @ 100 mls/hr IV .Q10H ANG Rx#:[id number] ceFAZolin 2 gm In Sodium 50 Chloride 0.9% 50 ml @ 100 mls/hr IVPB Q8HR ANG Rx# :[id number] Output: Urine 300 250 Other: Voiding Method Indwelling Catheter Indwelling Catheter - Exam This is a 78-year-old female in no acute distress. She is alert with confusion. Exam of the right hip reveals that her dressing is clean, dry and intact. She has full foot and ankle motion without difficulty or pain. Neurovascular status to the right lower extremity is intact. - Labs CBC & Chem 7: 03/10/23 06:27 03/10/23 06:27 Labs: Abnormal Lab Results - Last 24 Hours (Table) 03/10/23 03/10/23 Range/Units 06:27 06:27 RBC 3.10 L (4.10-5.20) X 10*6/uL Hgb 9.3 L (12.0-15.0) g/dL Hct 29.5 L (37.2-46.3) % MCHC 31.5 L (32.0-37.0) g/dL RDW 14.8 H (11.5-14.5) % Neutrophils # 7.95 H (1.80-7.70) X 10*3/uL Lymphocytes # 0.59 L (0.90-5.00) X 10*3/uL Eosinophils # 0.01 L (0.04-0.35) X 10*3/uL BUN 19 H (7-17) mg/dL Creatinine 0.46 L (0.52-1.04) mg/dL Glucose 106 H (74-99) mg/dL Calcium 7.7 L (8.4-10.2) mg/dL Total Bilirubin 1.5 H (0.2-1.3) mg/dL AST 115 H (14-36) U/L ALT 161 H (4-34) U/L Alkaline Phosphatase 145 H (38-126) U/L Total Protein 5.2 L (6.3-8.2) g/dL Albumin 2.8 L (3.5-5.0) g/dL Assessment and Plan (1) Closed fracture of proximal end of right femur Current Visit: Yes Status: Acute Code(s): S72.001A - FRACTURE OF UNSP PART OF NECK OF RIGHT FEMUR, INIT SNOMED Code(s): 876172549 (2) Intertrochanteric fracture of right hip Current Visit: Yes Status: Acute Code(s): S72.141A - DISPLACED INTERTROCHANTERIC FRACTURE OF RIGHT FEMUR, INIT SNOMED Code(s): 940607422 Plan: The clinical findings are discussed with the nursing staff. Continue care. We are planning discharge back to her extended care facility when cleared medically.
[2023-03-11 08:29] VITALS: RESP 18
[2023-03-11] MEDS: ASPIRIN 81 MG PO SCH (08:53)
[2023-03-11] MEDS: LORazepam 0.5 MG TAB PO SCH ×3 (08:53→15:38)
[2023-03-11] MEDS: CITALOPRAM HYDROBROMIDE 20 MG TAB PO SCH (08:54)
[2023-03-11] MEDS: DIVALPROEX SPRINKLE 125 MG CAP.SPRINK PO SCH (08:54)
[2023-03-11] MEDS: LACTATED RINGERS 1,000 ML IV SCH ×2 (09:00→15:38)
--- NOTE | 2023-03-11 12:26 | P.PN ---
Subjective Progress Note Date: 03/11/23 patient is a 78-year-old lady with past medical history significant for dementia who is a resident of [facility] presented to the ER after having a fall. Patient was walking with staff when she fell on her right side hitting her hip. Patient was brought to the ER of [facility]. Initial blood work in the ER showed white count of 7.2, hemoglobin 12, platelet count 96, sodium 140, potassium 4.1, chloride 106, BUN 27, creatinine 0.64 Pelvis and hip x-rays reveal intertrochanteric fracture of the right hip with extension of the fracture down past the subtrochanteric region Patient was admitted to orthopedic service, internal medicine was consulted for medical management 03/10. Patient seen and examined. Not in acute distress. Vital signs stable. patient's daughter at the bedside. White count is 9.32, hemoglobin is 9.3. Platelet count 172. patient LFTs were elevated this morning, AST 115, ALT 161, alkaline phosphatase 145, 5/10. Patient seen and examined. Patient has baseline dementia. Family at the bedside, patient continues to have poor appetite. Discussed with family regard ing patient's elevated LFTs, at this time patient had and does not want any frequent blood draws, will DC checking blood work REVIEW OF SYSTEMS: has baseline dementia, cannot obtain a detailed review of systems PHYSICAL EXAMINATION: GENERAL: The patient is alert, baseline dementia, not in any acute distress. Well developed, well nourished. HEENT: Pupils are round and equally reacting to light. EOMI. No scleral icterus. No conjunctival pallor. Normocephalic, atraumatic. No pharyngeal erythema. No thyromegaly. CARDIOVASCULAR: S1 and S2 present. No murmurs, rubs, or gallops. PULMONARY: Chest is clear to auscultation, no wheezing or crackles. ABDOMEN: Soft, nontender, nondistended, normoactive bowel sounds. No palpable organomegaly. MUSCULOSKELETAL: right hip surgical incision seen EXTREMITIES: No cyanosis, clubbing, or pedal edema. NEUROLOGICAL: Gross neurological examination did not reveal any focal deficits. SKIN: No rashes. Assessment and plan Right hip fracture Dementia Thrombocytopenia acute blood loss anemia elevated LFTs plan Monitor vital signs status post closed reduction and intramedullary nailing of the right hip Continue pain management per orthopedics Continue DVT prophylaxis per orthopedicsin the form of aspirin 81 mg twice a day DC Lipitor because of elevated LFTs PT and OT evaluation continue home meds patient is medically stable for discharge to rehab Objective - Vital Signs Vital signs: Vital Signs Temp 97.3 F L 03/11/23 06:56 Pulse 75 03/11/23 06:56 Resp 18 03/11/23 06:56 BP 120/71 03/11/23 06:56 Pulse Ox 97 03/11/23 08:21 FiO2 Intake & Output 03/10/23 03/11/23 03/11/23 18:59 06:59 18:59 Intake Total 850 Output Total 300 250 Balance 550 -250 Intake: Intake, IV Titration 850 Amount Lactated Ringers 1,000 ml 800 @ 100 mls/hr IV .Q10H ANG Rx#:[id number] ceFAZolin 2 gm In Sodium 50 Chloride 0.9% 50 ml @ 100 mls/hr IVPB Q8HR ANG Rx# :[id number] Output: Urine 300 250 Other: Voiding Method Indwelling Catheter Indwelling Catheter Indwelling Catheter - Labs CBC & Chem 7: 03/10/23 06:27 03/10/23 06:27 Labs: Abnormal Lab Results - Last 24 Hours (Table) 03/10/23 03/10/23 Range/Units 06:27 06:27 RBC 3.10 L (4.10-5.20) X 10*6/uL Hgb 9.3 L (12.0-15.0) g/dL Hct 29.5 L (37.2-46.3) % MCHC 31.5 L (32.0-37.0) g/dL RDW 14.8 H (11.5-14.5) % Neutrophils # 7.95 H (1.80-7.70) X 10*3/uL Lymphocytes # 0.59 L (0.90-5.00) X 10*3/uL Eosinophils # 0.01 L (0.04-0.35) X 10*3/uL BUN 19 H (7-17) mg/dL Creatinine 0.46 L (0.52-1.04) mg/dL Glucose 106 H (74-99) mg/dL Calcium 7.7 L (8.4-10.2) mg/dL Total Bilirubin 1.5 H (0.2-1.3) mg/dL AST 115 H (14-36) U/L ALT 161 H (4-34) U/L Alkaline Phosphatase 145 H (38-126) U/L Total Protein 5.2 L (6.3-8.2) g/dL Albumin 2.8 L (3.5-5.0) g/dL
--- NOTE | 2023-03-11 13:34 | P.DS ---
Providers Date of admission: 03/08/23 17:52 Expected date of discharge: 03/11/23 Attending physician: Itz Horvath Consults: 03/08/23 17:52 Consult Physician Routine Consulting Provider: Kaylee Tuttle Consult Reason/Comments: Medical management Do you want consulting provider notified?: Yes Primary care physician: Latoya Mead, DO - Discharge Diagnosis(es) (1) Closed fracture of proximal end of right femur Current Visit: Yes Status: Acute (2) Intertrochanteric fracture of right hip Current Visit: Yes Status: Acute Hospital Course: This is a 78-year-old female who resides at [facility] and has history of dementia. She apparently was up walking with staff and fell yesterday. On exam and x-ray in the emergency department she is found to have a an intertrochanteric fracture with extension into the subtrochanteric region. She is admitted to our service for surgical intervention and care. Family is present at bedside. The patient is unable to provide history. The patient was taken to surgery on 03/09/2023 for closed reduction with insertion of intertrochanteric nail of the right hip. The procedure was performed without complication or sequelae. Patient is stable from an orthopedic standpoint. Patient is discharged to [facility] on 03/11/2023. Please see Med Rec for accurate list of home medications. Patient Condition at Discharge: Stable Plan - Discharge Summary Discharge Rx Participant: No New Discharge Prescriptions: New HYDROcodone/APAP 5-325MG [[place] 5-325] 1 tab PO Q6HR PRN #28 tab PRN Reason: Pain Sennosides-Docusate Sodium [Senokot-S] 1 tab PO BID #60 tablet No Action Atorvastatin [Lipitor] 40 mg PO HS Metoprolol Tartrate [Lopressor] 12.5 mg PO HS Donepezil [Aricept] 10 mg PO HS Furosemide [Lasix] 20 mg PO BID@0700,1600 Divalproex Sprinkle [Depakote Sprinkle] 125 mg PO BID Potassium Chloride ER [K-Dur 10] 10 meq PO DAILY@0700 Levothyroxine Sodium [Synthroid] 100 mcg PO DAILY@0500 Acetaminophen [Tylenol 8 Hour] 650 mg PO Q6H PRN PRN Reason: Pain LORazepam [Ativan] 0.5 mg PO TID@0700,1300,1900 QUEtiapine [SEROquel] 50 mg PO HS@1999 Citalopram Hydrobromide [CeleXA] 20 mg PO DAILY Discharge Medication List Atorvastatin [Lipitor] 40 mg PO HS 10/30/17 [History] Donepezil [Aricept] 10 mg PO HS 10/30/17 [History] Metoprolol Tartrate [Lopressor] 12.5 mg PO HS 10/30/17 [History] Acetaminophen [Tylenol 8 Hour] 650 mg PO Q6H PRN 03/08/23 [History] Citalopram Hydrobromide [CeleXA] 20 mg PO DAILY 03/08/23 [History] Divalproex Sprinkle [Depakote Sprinkle] 125 mg PO BID 03/08/23 [History] Furosemide [Lasix] 20 mg PO BID@0700,1600 03/08/23 [History] LORazepam [Ativan] 0.5 mg PO TID@0700,1300,1900 03/08/23 [History] Levothyroxine Sodium [Synthroid] 100 mcg PO DAILY@0500 03/08/23 [History] Potassium Chloride ER [K-Dur 10] 10 meq PO DAILY@0700 03/08/23 [History] QUEtiapine [SEROquel] 50 mg PO HS@199903/08/23 [History] HYDROcodone/APAP 5-325MG [[place]roft 5-325] 1 tab PO Q6HR PRN #28 tab 03/09/23 [Rx] Sennosides-Docusate Sodium [Senokot-S] 1 tab PO BID #60 tablet 03/09/23 [Rx] Follow up Appointment(s)/Referral(s): Lupe Redd PAC [PHYSICIAN PROPERTY ECONOMIST] - 3 Weeks Latoya Mead DO [Primary Care Provider] - 1-2 days Activity/Diet/Wound Care/Special Instructions: Bed to chair transfer only, NWB RLE. May remove dressing 7 days post op. May shower. Discharge Disposition: TRANSFER TO SNF/ECF
[2023-03-11 15:02] VITALS: BP 115/71; PULSE 76; TEMP 97.7
== END 2023-03-11 17:45 | DRG 481 ==
LOC: EC 16:42 → 4SSUR 17:52
PROVIDERS: ADMIT Orthopaedic Surgery; ATTEND Orthopaedic Surgery
PROC: 0QS636Z Reposition Right Upper Femur with Intramedullary Internal Fixation Device, Percutaneous Approach (ICD-10-PCS; principal; 2023-03-09 13:25)
DX: S72.141A Displaced intertrochanteric fracture of right femur, initial encounter for closed fracture (principal); D62 Acute posthemorrhagic anemia; F02.C4 Dementia in other diseases classified elsewhere, severe, with anxiety; D69.6 Thrombocytopenia, unspecified; G30.9 Alzheimer's disease, unspecified; I10 Essential (primary) hypertension; E78.5 Hyperlipidemia, unspecified; E07.9 Disorder of thyroid, unspecified; K21.9 Gastro-esophageal reflux disease without esophagitis; M19.90 Unspecified osteoarthritis, unspecified site; R63.0 Anorexia; Z68.23 Body mass index [BMI] 23.0-23.9, adult; R79.89 Other specified abnormal findings of blood chemistry; Z79.899 Other long term (current) drug therapy; Z79.890 Hormone replacement therapy; Z87.891 Personal history of nicotine dependence; Z96.653 Presence of artificial knee joint, bilateral; W18.30XA Fall on same level, unspecified, initial encounter; Y92.129 Unspecified place in nursing home as the place of occurrence of the external cause
CPT/HCPCS: 36415; 71045; 73502; 80053; 85025; 85610; 85730; 94760; 96374; 99285